=== PATIENT | female | born 1975 | race Asian ===

== ENCOUNTER → 2017-06-20 | Outpatient (CLI) | payer OTHER | END | disposition home or self-care (01) | LOC: HKI 09:56 | DX: S83.002A Unspecified subluxation of left patella, initial encounter (principal); S83.001A Unspecified subluxation of right patella, initial encounter; X58.XXXA Exposure to other specified factors, initial encounter; Y92.89 Other specified places as the place of occurrence of the external cause | CPT/HCPCS: 73562; 73562-LT ==